=== PATIENT | female | born 1960 | race American Indian/Alaskan Native ===

== ENCOUNTER 2021-01-22 02:55 | Emergency (ER) | payer OTHER ==
[2021-01-22 06:10] VITALS: BP 151/97
[2021-01-22] MEDS ORDERED: ALBUTEROL 2.5 MG/3 ML NEBU IH ONE (06:26)
[2021-01-22] MEDS ORDERED: IPRATROPIUM 0.02% NEBU 2.5 ML IH ONE (06:26)
[2021-01-22] MEDS ORDERED: methylPREDNISolone Sod Succinate 125 MG/2 ML INJ IV ONE (06:26)
[2021-01-22 07:32] LABS: Basophils % (Auto) 0.2 % (0.0-1.8); Eosinophils % (Auto) 0.2 % (0.0-4.3); Hematocrit 31.9 % (30.3-42.9); Hemoglobin 9.8 gm/dl (10.1-14.3); Lymphocytes # (Auto) 0.6 K/mm3 (1.2-5.4); Lymphocytes % (Auto) 6.6 % (13.4-35.0); Mean Corpuscular HGB Conc 31 % (30-34); Mean Corpuscular Volume 79 fl (79-97); Monocytes # (Auto) 0.5 K/mm3 (0.0-0.8); Monocytes % (Auto) 6.4 % (0.0-7.3); Platelet Count 291 K/mm3 (140-440); Red Blood Count 4.02 M/mm3 (3.65-5.03)
--- NOTE | 2021-01-22 07:41 | XRay Report ---
CHEST 1 VIEW 01/22/2021 7:15 AM INDICATION / CLINICAL INFORMATION: Dyspnea. COMPARISON: None available. FINDINGS: SUPPORT DEVICES: None. HEART / MEDIASTINUM: The heart size and pulmonary vasculature are normal for technique. LUNGS / PLEURA: There is moderate patchy parenchymal disease in the right mid to lower lung. There ma y be a trace amount of right pleural effusion. The left lung is clear. No pneumothorax. ADDITIONAL FINDINGS: There are mild degenerative changes involving both glenohumeral joints. IMPRESSION: Moderate patchy parenchymal disease in the right mid to lower lung may be related to pneu monia or aspiration. Signer Name: Tom Joseph MD Signed: 01/22/2021 7:37 AM Workstation Name: [id number]
[2021-01-22 07:54] LABS: BUN/Creatinine Ratio 29; Blood Urea Nitrogen 26 mg/dL (7-17); Calcium 8.8 mg/dL (8.4-10.2); Hemolysis Index 0
[2021-01-22] MEDS ORDERED: levoFLOXacin 500 MG TAB PO ONE (08:30)
--- NOTE | 2021-01-22 08:36 | Emergency Department Report ---
ED Shortness of Breath HPI - General Chief Complaint: Adult Asthma Stated Complaint: ASTHMA Time Seen by Provider: 01/22/21 06:10 Source: EMS Mode of arrival: Stretcher Limitations: No Limitations - History of Present Illness Initial Comments: Patient is a 60-year-old F [place]iqu[place] female with past medical history of asthma who states she has had some increased shortness of breath since last night. Patient states she woke up very short of breath and was wheezing. States she felt fine yesterday. Denies any fevers chills or body aches nausea vomiting or diarrhea. Patient states she did receive 2 doses of the COVID-19 vaccine but did not receive booster as of yet. MD Complaint: shortness of breath, "asthma attack" - Related Data Previous Rx's Medication Instructions Recorded Last Taken Type Albuterol Mdi (or & Nicu Only) 2 puff IH QID PRN #1 inhalation 01/22/21 Unknown Rx [ProAir HFA Inhaler] Azithromycin [Zithromax Z-CONNER] 250 mg PO DAILY #6 tablet 01/22/21 Unknown Rx Benzonatate [Tessalon Perles] 100 mg PO Q8HR #10 capsule 01/22/21 Unknown Rx levoFLOXacin [Levaquin TAB] 500 mg PO QDAY #7 tablet 01/22/21 Unknown Rx predniSONE [Deltasone] 50 mg PO QDAY #5 tab 01/22/21 Unknown Rx Allergies Allergy/AdvReac Type Severity Reaction Status Date / Time No Known Allergies Allergy Unverified 01/22/21 03:03 ED Review of Systems ROS: Stated complaint: ASTHMA Other details as noted in HPI Comment: All other systems reviewed and negative ED Past Medical Hx - Past Medical History Hx Hypertension: Yes Hx Diabetes: Yes Hx Asthma: Yes - Surgical History Past Surgical History?: No - Social History Smoking Status: Current Every Day Smoker Substance Use Type: None - Medications Home Medications: Home Medications Medication Instructions Recorded Confirmed Last Taken Type Albuterol Mdi (or & Nicu Only) 2 puff IH QID PRN #1 inhalation 01/22/21 Unknown Rx [ProAir HFA Inhaler] Azithromycin [Zithromax Z-CONNER] 250 mg PO DAILY #6 tablet 01/22/21 Unknown Rx Benzonatate [Tessalon Perles] 100 mg PO Q8HR #10 capsule 01/22/21 Unknown Rx levoFLOXacin [Levaquin TAB] 500 mg PO QDAY #7 tablet 01/22/21 Unknown Rx predniSONE [Deltasone] 50 mg PO QDAY #5 tab 01/22/21 Unknown Rx ED Physical Exam - General Limitations: No Limitations General appearance: alert, in no apparent distress - Head Head exam: Present: atraumatic, normocephalic - Eye Eye exam: Present: normal appearance - ENT ENT exam: Present: mucous membranes moist - Neck Neck exam: Present: normal inspection - Respiratory Respiratory exam: Present: respiratory distress, wheezes. Absent: normal lung sounds bilaterally, rales, rhonchi, chest wall tenderness, accessory muscle use - Cardiovascular Cardiovascular Exam: Present: regular rate, normal rhythm, normal heart sounds. Absent: systolic murmur, diastolic murmur, rubs, gallop - GI/Abdominal GI/Abdominal exam: Present: soft, normal bowel sounds. Absent: distended, tenderness, guarding, rebound - Extremities Exam Extremities exam: Present: normal inspection - Back Exam Back exam: Present: normal inspection - Neurological Exam Neurological exam: Present: alert, oriented X3 - Psychiatric Psychiatric exam: Present: normal affect, normal mood - Skin Skin exam: Present: warm, dry, intact, normal color. Absent: rash ED Course Vital Signs 01/22/21 01/22/21 01/22/21 03:00 03:08 03:30 Temperature 98.6 F Pulse Rate 98 H Pulse Rate [ Anterior Bilateral Throughout] Respiratory 22 26 H Rate Respiratory Rate [Anterior Bilateral Throughout] Blood Pressure 142/83 Blood Pressure 200/100 [Left] O2 Sat by Pulse 100 98 85 Oximetry 01/22/21 01/22/21 01/22/21 04:00 04:30 05:00 Temperature Pulse Rate Pulse Rate [ Anterior Bilateral Throughout] Respiratory Rate Respiratory Rate [Anterior Bilateral Throughout] Blood Pressure 138/80 133/85 143/93 Blood Pressure [Left] O2 Sat by Pulse 100 100 100 Oximetry 01/22/21 01/22/21 01/22/21 05:30 05:51 06:00 Temperature Pulse Rate Pulse Rate [ Anterior Bilateral Throughout] Respiratory 20 Rate Respiratory Rate [Anterior Bilateral Throughout] Blood Pressure 154/94 151/97 Blood Pressure [Left] O2 Sat by Pulse 100 96 100 Oximetry 01/22/21 06:42 Temperature Pulse Rate Pulse Rate [ 97 H Anterior Bilateral Throughout] Respiratory Rate Respiratory 20 Rate [Anterior Bilateral Throughout] Blood Pressure Blood Pressure [Left] O2 Sat by Pulse Oximetry ED Medical Decision Making - Lab Data Result diagrams: 01/22/21 06:41 01/22/21 06:41 Lab Results 01/22/21 01/22/21 Range/Units 06:41 06:41 WBC 8.4 (4.5-11.0) K/mm3 RBC 4.02 (3.65-5.03) M/mm3 Hgb 9.8 L (10.1-14.3) gm/dl Hct 31.9 (30.3-42.9) % MCV 79 (79-97) fl MCH 25 L (28-32) pg MCHC 31 (30-34) % RDW 21.0 H (13.2-15.2) % Plt Count 291 (140-440) K/mm3 Lymph % (Auto) 6.6 L (13.4-35.0) % [place] % (Auto) 6.4 (0.0-7.3) % Eos % (Auto) 0.2 (0.0-4.3) % Baso % (Auto) 0.2 (0.0-1.8) % Lymph # (Auto) 0.6 L (1.2-5.4) K/mm3 [place] # (Auto) 0.5 (0.0-0.8) K/mm3 Eos # (Auto) 0.0 (0.0-0.4) K/mm3 Baso # (Auto) 0.0 (0.0-0.1) K/mm3 Seg Neutrophils % 86.6 H (40.0-70.0) % Seg Neutrophils # 7.3 (1.8-7.7) K/mm3 Sodium 147 H (137-145) mmol/L Potassium 4.3 (3.6-5.0) mmol/L Chloride 109.8 H (98-107) mmol/L Carbon Dioxide 23 (22-30) mmol/L Anion Gap 19 mmol/L BUN 26 H (7-17) mg/dL Creatinine 0.9 (0.6-1.2) mg/dL Estimated GFR > 60 ml/min BUN/Creatinine Ratio 29 % Glucose 123 H (65-100) mg/dL Calcium 8.8 (8.4-10.2) mg/dL - Radiology Data CHEST 1 VIEW 01/22/2021 7:15 AM INDICATION / CLINICAL INFORMATION: Dyspnea. COMPARISON: None available. FINDINGS: SUPPORT DEVICES: None. HEART / MEDIASTINUM: The heart size and pulmonary vasculature are normal for technique. LUNGS / PLEURA: There is moderate patchy parenchymal disease in the right mid to lower lung. There may be a trace amount of right pleural effusion. The left lung is clear. No pneumothorax. ADDITIONAL FINDINGS: There are mild degenerative changes involving both glenohumeral joints. IMPRESSION: Moderate patchy parenchymal disease in the right mid to lower lung may be related to pneumonia or aspiration. Signer Name: Tom Joseph MD Signed: 01/22/2021 7:37 AM Workstation Name: [id number] - Medical Decision Making Patient is a 60-year-old F [place] female who is presenting with cough and wheezing. Patient received hour-long neb treatment states she is feeling much improved. Room air the patient is approximately 95% with her O2 sat. Did walk the patient she states she was feeling fine. No increased work of breathing aft er walking have lab on our emergency department. Patient given first dose of Levaquin due to what appears to be a large pneumonia on the right lower lobe. Patient appears well believe she is stable for outpatient therapy for the pneumonia. Critical care attestation.: If time is entered above; I have spent that time in minutes in the direct care of this critically ill patient, excluding procedure time. ED Disposition Clinical Impression: Acute asthma exacerbation Pneumonia Qualifiers: Pneumonia type: due to unspecified organism Laterality: right Lung location: lower lobe of lung Qualified Code(s): J18.9 - Pneumonia, unspecified organism Disposition: 01 HOME / SELF CARE / HOMELESS Is pt being admited?: No Does the pt Need Aspirin: No Condition: Stable Instructions: Bacterial Pneumonia (ED), Asthma, Adult, Community-Acquired Pneumonia, Adult, [id number] Referrals: STERLING MADSEN MD [Primary Care Provider] - 3-5 Days Time of Disposition: 08:37
== END 2021-01-22 09:00 | disposition home or self-care (01) ==
LOC: ED 02:55
DX: J45.901 Unspecified asthma with (acute) exacerbation (principal); J18.9 Pneumonia, unspecified organism; I10 Essential (primary) hypertension; E11.9 Type 2 diabetes mellitus without complications; F17.200 Nicotine dependence, unspecified, uncomplicated; Z79.899 Other long term (current) drug therapy
CPT/HCPCS: 36415; 71045; 80048; 85025; 94640; 94644; 99284